=== PATIENT | male | born 1995 | race Caucasian/White ===

== ENCOUNTER → 2019-02-03 | Outpatient (CLI) | payer BC ==
[~2019-02-03] MED LIST: IOPAMIDOL (ISOVUE-300) 100 ML BTL ONE
== END ==
LOC: FIMAGING 14:37
PROVIDERS: ATTEND Surgery
DX: S22.41XA Multiple fractures of ribs, right side, initial encounter for closed fracture (principal); R10.9 Unspecified abdominal pain
CPT/HCPCS: Q9967